=== PATIENT | male | born 1965 | race Caucasian/White ===

== ENCOUNTER 2022-10-17 11:15 | Inpatient (IN) | payer BC, OTHER ==
[~2022-10-17] VITALS: Ht 175.3 cm; Wt 135.6 kg
--- NOTE | 2022-10-17 11:15 | NUR ---
Placed in room 8 . Placed on ekg monitor tech, blood pressure machine and pulse oximeter. To gown for exam. Side rails up. Report given to ADILIA Panda.
[2022-10-17 11:24] VITALS: BP_SYST 136
--- NOTE | 2022-10-17 11:25 | NUR ---
PT BIB DAUGHTER AWAKE AND ALERT AOX4, NO SOB OR DISTRESS. PT C/O SOB FOR 4 DAYS. PT STATED HE RECENTLY HAD A LAP BAND REVERSAL SX LAST WEEK. PT HAS HX OF HTN, ASTHMA, LAP BAND . PT DENIES N/V/D.
--- NOTE | 2022-10-17 11:27 | NUR ---
MD DR PENG AT BEDSIDE
[2022-10-17] MEDS ORDERED: ALBUTEROL SULFATE 0.083% 2.5 MG/3 ML VIAL.NEB INH ONE ×2 (11:39→11:45)
[2022-10-17] MEDS ORDERED: IPRATROPIUM BROM 0.5 MG/2.5 ML VIAL.NEB (ATROVENT) INH ONE ×2 (11:39→11:45)
[2022-10-17 12:17] LABS: BASOPHILS # (AUTO) 0.1 K/uL (0.0-0.2); BASOPHILS % (AUTO) 0.7 % (0.0-2.0); EOSINOPHILS # (AUTO) 0.2 K/uL (0.0-0.4); EOSINOPHILS % (AUTO) 1.7 % (0.0-4.0); HEMATOCRIT 41.6 % (36-54); HEMOGLOBIN 13.7 g/dL (14.0-18.0); LYMPHOCYTES # (AUTO) 0.6 K/uL (1.0-5.5); LYMPHOCYTES % (AUTO) 5.8 % (20.5-51.5); MEAN CORPUSCULAR HEMOGLOBIN 27 pg (27-31); MEAN CORPUSCULAR HGB CONC 33 % (32-36); MEAN CORPUSCULAR VOLUME 80 fL (79.0-98.0); MONOCYTES # (AUTO) 0.7 K/uL (0.0-1.0); MONOCYTES % (AUTO) 6.2 % (1.7-9.3); NEUTROPHILS # (AUTO) 9.5 K/uL (1.8-7.7); NEUTROPHILS % (AUTO) 85.6 % (40.0-70.0); PLATELET COUNT (AUTO) 372 K/uL (130-430); RED BLOOD CELL COUNT(AUTO) 5.19 MIL/uL (4.2-6.2); WHITE BLOOD COUNT (AUTO) 11.1 K/uL (4.8-10.8)
[2022-10-17 12:34] LABS: ANION GAP 7 (5-15); CALCIUM 8.3 mg/dL (8.4-11.0); CHLORIDE 100 mmol/L (98-107); CREATININE 1.01 mg/dL (0.55-1.30); GFR AFRICAN AMERICAN 98 mL/min (>90); GLUCOSE 216 mg/dL (70-99); UREA NITROGEN, BLOOD 24 mg/dL (8-21)
[2022-10-17 12:41] LABS: ALANINE AMINOTRANSFERASE 60 U/L (12-78); ALBUMIN 2.3 g/dL (3.4-4.8); ASPARTATE AMINOTRANSFERASE 41 U/L (10-37); TOTAL BILIRUBIN 0.8 mg/dL (0.0-1.0)
[2022-10-17] MEDS ORDERED: NEU300 PO (13:53)
[2022-10-17] MEDS ORDERED: LISI40TA13 PO (13:53)
--- NOTE | 2022-10-17 15:13 | NUR ---
Admit bed requested Patient will be admitted to care of Dr. DR GONZALEZ. Admitted to MED SURGE unit. Diagnosis ACUTE ASTHMA Inpatient (Yes or No) YES Observation (Yes or No) NO Orientation concerns or request close to nursing station (Yes or No) NO Covid Status NEG On vent or bipap NO Isolation requirements NO Needs a sitter NO From Home (Yes or if No enter name of facility) HOME Requires Dialysis (Yes or No) NO Med Rec Completed (Yes of No) YES
--- NOTE | 2022-10-17 16:00 | NUR ---
Patient will be admitted to [facility]. Admitted to MED SURGE unit. Will go to room 106B. Belongings list completed. Complete and up to date summary report printed. SBAR report to be given at bedside with opportunity for questions.
--- NOTE | 2022-10-17 16:20 | NUR ---
PT CAME FROM ER VIA GURNEY WITH O2 2L VIA NC. PT WAS SITTING ON CHAIR UPON ARRIVAL. VS 116/71, 112, 80.4, 94-95%. NO C/O PAIN OR DISCOMFORT. DTR AT BEDSIDE. COMPLETED ADMISSION AND BELONGINGS. ENCOURAGED PT TO USE CALL LIGHT FOR ASSISTANCE. PT VERBALIZED UNDERSTANDING. BED IS LOCKED AND AT LOW POSITION. WILL CONT TO MONITOR
--- NOTE | 2022-10-17 16:26 | NUR ---
CONSULTATION PAGED REASON FOR CONSULTATION: ACUTE ASTHMA WAS CONSULT CALLED? Y PERSON WHO WAS NOTIFIED: [facility] CONSULTING PHYSICIAN: VERONICA KOO FIELD TEST ENGINEER SPECIALTY: ID FIELD TEST ENGINEER PHONE NUMBER: [phone] REQUESTING PHYSICIAN: YONY GABRIEL
[2022-10-17 16:27] VITALS: BP_SYST 116
--- NOTE | 2022-10-17 16:31 | NUR ---
CONSULTATION PAGED REASON FOR CONSULTATION: ACUTE ASTHMA WAS CONSULT CALLED? Y PERSON WHO WAS NOTIFIED: [facility] CONSULTING PHYSICIAN: YOVANNY MCNALLY WASHING MACHINE INSTALLER SPECIALTY: PULMONARY WASHING MACHINE INSTALLER PHONE NUMBER: [phone] REQUESTING PHYSICIAN: YONY GABRIEL
--- NOTE | 2022-10-17 16:59 | NUR ---
DR. STUART AT BEDSIDE, ASSESSING PT
[2022-10-17 17:04] VITALS: BP_SYST 116
[2022-10-17] MEDS: POTASSIUM CHLORIDE 20 MEQ TAB.PRT.SR PO SCH ×2 (17:24→19:16)
--- NOTE | 2022-10-17 17:50 | NUR ---
DR. WONG CALLED, NEW ORDER RECEIVED.
[2022-10-17] MEDS: IPRATROPIUM/ALBUTEROL SULFATE 3 ML AMPUL.NEB (DUONEB) INH SCH ×2 (18:00→23:28)
[2022-10-17] MEDS ORDERED: CEFTRIAXONE SOD 1 GM/ D5W 50 ML IV SCH ×2 (18:00)
[2022-10-17 19:00] VITALS: BP_SYST 123
[2022-10-17] MEDS ORDERED: IPRATROPIUM/ALBUTEROL SULFATE 3 ML AMPUL.NEB (DUONEB) INH SCH (19:00)
--- NOTE | 2022-10-17 19:15 | NUR ---
CLOSING NOTE; PT RESTING IN BED WITH FAMILY MEMBERS. BREATHING 2L O2 VIA NC. IV S/L REMAIN INTACT AND PATENT. DENIES ANY PAIN DISCOMFORT AT THIS TIME. GAVE UPDATES TO FAMILY. BED IS LOCKED AND AT LOW POSITION. SAFETY PRECAUTION IN PLACE. ENCOURAGED PT TO USE CALL LIGHT FOR ASSISTANCE. ENDORSED CARE TO IN TUBE CONVERSION TECHNICIAN NURSE.
--- NOTE | 2022-10-17 19:15 | NUR ---
change of shift.pt.presents admit dx;asthma.pt.presents respiratory status labored.o2 therapy administered via nasal cannulae. 02-sat%=96%.pt.presents respiratory status character labored.pt.presents iv access location lt.antecubital intact;patent.pt. capable to ambulate un-assisted.call light/telephone w/in access of the pt.
[2022-10-17 20:00] VITALS: BP_SYST 123
--- NOTE | 2022-10-17 20:00 | NUR ---
pt.assessed.v/s assessed values note 02-sat%=94%.o2 therapy administered rate:2l/min.breathing pattern/character labored.note temp.no c/o pain,nausea.note s.tachycardia status.temp noted.to review emar med-list r/e;pt.v/s values. call light/telephone w/in access of the pt.
[2022-10-17] MEDS ORDERED: ACETAMINOPHEN 325 MG TABLET PO PRN ×2 (20:15→21:00)
[2022-10-17] MEDS ORDERED: ACETAMINOPHEN 650 MG SUPP.RECT RC PRN (20:15)
--- NOTE | 2022-10-17 21:00 | NUR ---
2100p medications administered.pt.capable to ingest the po medications w/out difficulty.pt.c/o pain anjali paged. apprised pt's requests. ordered ultram:50mg q-6hrs/p.02-sat%=96%.call light/telephone w/in access of the pt.
--- NOTE | 2022-10-17 21:30 | NUR ---
tylenol;650mg;temp/ultram:50mg:pain administered.to assess the efficacy of the pain/temp medication per medication protocol.
[2022-10-17] MEDS: METHYLPREDNISOLONE SOD SUCC 40 MG/ML VIAL IVP SCH (21:39)
[2022-10-17] MEDS: traMADol HCL HCL 50 MG TABLET (ULTRAM) PO PRN (21:43)
[2022-10-17] MEDS ORDERED: methylPREDNISolone SOD SUCC/PF 62.5 MG/ML VIAL IVP SCH (22:00)
--- NOTE | 2022-10-17 22:00 | NUR ---
pt.assessed.applied o2 therapy via mask.breathing character/pattern stable.02-sat%=98%.pt.presents calm affect. respiratory status decreased labored status.no c/o pain,nausea.no requests posited@this hour.pt.capable to reposition self.call light/telephone w/in access of the pt.
--- NOTE | 2022-10-17 23:00 | NUR ---
pt.requested medication;sleep.restoril:15mg administered.to assess the efficacy of the medication per medication policy.
[2022-10-17] MEDS: TEMAZEPAM 7.5 MG CAPSULE PO PRN (23:05)
--- NOTE | 2022-10-18 | NUR ---
pt.assessed.v/s assessed values wnl.o2-sat%=94%.no c/o pain,nausea.no requests posited@this hour.iv access intact;patent.pt.capable to reposition self.call light/telephone w/in access of the pt.
--- NOTE | 2022-10-18 02:00 | NUR ---
pt.assessed.pt.quiescent.02-thu%=96%.breathing pattern/character stable;quiescent.per flacc pain mgx pt.absent facial grimaces/body posturing.call light/telephone w/n access of the pt.
[2022-10-18 02:39] VITALS: BP_SYST 114
[2022-10-18] MEDS: IPRATROPIUM/ALBUTEROL SULFATE 3 ML AMPUL.NEB (DUONEB) INH PRN ×2 (03:22→17:57)
--- NOTE | 2022-10-18 04:00 | NUR ---
pt.assessed.pt.quiescent.per flacc pain mgx pt.absent facial grimaces/body posturing.o2-sat%=96%.pt.capable to reposition self.call light/telephone w/in access of the pt.
[2022-10-18] MEDS: METHYLPREDNISOLONE SOD SUCC 40 MG/ML VIAL IVP SCH ×3 (05:24→21:42)
--- NOTE | 2022-10-18 06:00 | NUR ---
pt.assessed.pt.quiescent.no c/o pain,nausea.no requests posited@this hour.solumedrol;ivp 0600a dose administered.pt.capable to reposition self.02-sat%=96%.call light/telephone placed w/in access of the pt.
[2022-10-18 07:07] LABS: BASOPHILS % (AUTO) 0.3 % (0.0-2.0); EOSINOPHILS % (AUTO) 0.1 % (0.0-4.0); HEMATOCRIT 40.2 % (36-54); HEMOGLOBIN 13.3 g/dL (14.0-18.0); LYMPHOCYTES # (AUTO) 0.9 K/uL (1.0-5.5); MEAN CORPUSCULAR HEMOGLOBIN 26 pg (27-31); MEAN CORPUSCULAR HGB CONC 33 % (32-36); MEAN CORPUSCULAR VOLUME 80 fL (79.0-98.0); MONOCYTES # (AUTO) 0.2 K/uL (0.0-1.0); NEUTROPHILS # (AUTO) 11.5 K/uL (1.8-7.7); NEUTROPHILS % (AUTO) 90.6 % (40.0-70.0); PLATELET COUNT (AUTO) 375 K/uL (130-430); RED BLOOD CELL COUNT(AUTO) 5.03 MIL/uL (4.2-6.2); RED CELL DISTRIBUTION WIDTH 16.5 % (9.0-15.0); WHITE BLOOD COUNT (AUTO) 12.6 K/uL (4.8-10.8)
--- NOTE | 2022-10-18 07:20 | NUR ---
Initial notes Received patient awake sitting up at edge of bed AAOx4, respiration even and unlabored oxygen saturation at 96% nasal cannula, no c/o pain/SOB, no signs of distress noted. IV to right hand patent, all safety secured, bed in low position and call light w/in reached.
--- NOTE | 2022-10-18 07:21 | NUR ---
IV to right forearm patent
[2022-10-18 07:22] LABS: CALCIUM 8.1 mg/dL (8.4-11.0); CREATININE 0.8 mg/dL (0.55-1.30)
[2022-10-18] MEDS: IPRATROPIUM/ALBUTEROL SULFATE 3 ML AMPUL.NEB (DUONEB) INH SCH ×4 (07:27→23:13)
[2022-10-18 08:09] VITALS: BP_SYST 121
[2022-10-18] MEDS: FAMOTIDINE PF 20 MG/2 ML VIAL IVP SCH (08:31)
[2022-10-18] MEDS ORDERED: cefTRIAXone 1 GM VIAL IM ONE (09:00)
[2022-10-18 11:31] VITALS: BP_SYST 127
[2022-10-18 15:25] VITALS: BP_SYST 115
--- NOTE | 2022-10-18 19:29 | NUR ---
Patient stable , no change in condition, no c/o SOB/pain, will endorse to oncoming nurse
[2022-10-18 20:30] VITALS: BP_SYST 134
--- NOTE | 2022-10-18 21:00 | NUR ---
phoned & spoke with DR LISA ALTMAN Regarding patient c/o ACID STOMACH / HEART BURN .
--- NOTE | 2022-10-18 21:10 | NUR ---
New orders obtained DR LISA ALTMAN START PROTONIX 40 MG po now / .
[2022-10-18] MEDS: GABAPENTIN 300 MG CAPSULE PO SCH (21:39)
[2022-10-18] MEDS: TEMAZEPAM 7.5 MG CAPSULE PO PRN (21:41)
[2022-10-18] MEDS: traMADol HCL HCL 50 MG TABLET (ULTRAM) PO PRN (21:42)
[2022-10-18] MEDS: PANTOPRAZOLE SODIUM 40 MG TAB PO SCH (21:57)
[2022-10-18] MEDS ORDERED: PANTOPRAZOLE SODIUM 40 MG TAB PO ONE (21:58)
--- NOTE | 2022-10-18 22:24 | NUR ---
ULTRAM 50 MG po administer for general pain encourage position change also helpful / .
[2022-10-19 00:18] VITALS: BP_SYST 135
[2022-10-19] MEDS: IPRATROPIUM/ALBUTEROL SULFATE 3 ML AMPUL.NEB (DUONEB) INH PRN (03:45)
--- NOTE | 2022-10-19 04:31 | NUR ---
Patient Resting on C PAP MACHINE Respirations Remain Regular also unlabored call park with patient / .
[2022-10-19] MEDS: METHYLPREDNISOLONE SOD SUCC 40 MG/ML VIAL IVP SCH ×3 (06:02→21:55)
[2022-10-19 07:01] LABS: BASOPHILS # (AUTO) 0.1 K/uL (0.0-0.2); BASOPHILS % (AUTO) 0.6 % (0.0-2.0); HEMATOCRIT 38.5 % (36-54); HEMOGLOBIN 12.4 g/dL (14.0-18.0); LYMPHOCYTES # (AUTO) 0.6 K/uL (1.0-5.5); LYMPHOCYTES % (AUTO) 3.5 % (20.5-51.5); MEAN CORPUSCULAR HEMOGLOBIN 26 pg (27-31); MEAN CORPUSCULAR HGB CONC 32 % (32-36); MEAN CORPUSCULAR VOLUME 81 fL (79.0-98.0); MONOCYTES # (AUTO) 0.6 K/uL (0.0-1.0); MONOCYTES % (AUTO) 3.5 % (1.7-9.3); NEUTROPHILS # (AUTO) 15.5 K/uL (1.8-7.7); NEUTROPHILS % (AUTO) 92.4 % (40.0-70.0); PLATELET COUNT (AUTO) 371 K/uL (130-430); RED BLOOD CELL COUNT(AUTO) 4.76 MIL/uL (4.2-6.2); WHITE BLOOD COUNT (AUTO) 16.7 K/uL (4.8-10.8)
[2022-10-19 07:22] LABS: CALCIUM 8.5 mg/dL (8.4-11.0); CREATININE 0.89 mg/dL (0.55-1.30)
[2022-10-19] MEDS: IPRATROPIUM/ALBUTEROL SULFATE 3 ML AMPUL.NEB (DUONEB) INH SCH ×5 (07:32→23:06)
[2022-10-19] MEDS: GABAPENTIN 300 MG CAPSULE PO SCH ×2 (08:17→21:55)
[2022-10-19] MEDS: lisinopriL 20 MG TABLET PO SCH (08:18)
[2022-10-19] MEDS: FAMOTIDINE PF 20 MG/2 ML VIAL IVP SCH (08:19)
[2022-10-19] MEDS: PANTOPRAZOLE SODIUM 40 MG TAB PO SCH (08:19)
[2022-10-19 08:24] VITALS: BP_SYST 139
[2022-10-19 11:22] VITALS: BP_SYST 142
--- NOTE | 2022-10-19 13:17 | NUR ---
Dietitian Recommendations * [facility] * Ordered Glucerna BID (vanilla flavor) * Consider obtaining Hgba1c value * Suggest daily multivitamin with minerals for micronutrient coverage GS, MPH, RD Please refer to RD Assessment for further details. Thanks! Addendum: 10/19/22 at [address] Amended: Links added.
[2022-10-19 15:10] VITALS: BP_SYST 126
--- NOTE | 2022-10-19 19:00 | NUR ---
Patient sitting next to bed with family at bedside, no c/o SOB/pain , no signs of distress all safety secured, bed in low position and call light w/in reached, will endorse
[2022-10-19 20:00] VITALS: BP_SYST 138
[2022-10-19] MEDS: traMADol HCL HCL 50 MG TABLET (ULTRAM) PO PRN (21:55)
[2022-10-19] MEDS: TEMAZEPAM 7.5 MG CAPSULE PO PRN (21:56)
[2022-10-19] MEDS: INSULIN REGULAR, HUMAN 100 UNITS/ML, 3 ML VIAL (humuLIN R) SUBCUT PRN (22:01)
--- NOTE | 2022-10-19 22:03 | NUR ---
phoned paged DR JUDITH ALTMAN elevated BS @ 204 , patient did , says just ate large meal FOOD FROM HOME / patient is non compliant with ordered po diet / .
--- NOTE | 2022-10-19 22:06 | NUR ---
New ORDERS DR JUDITH ALTMAN SLIDING SCALE insulin 12 units as ordered patient alert & ambulatory / .
[2022-10-20] VITALS: BP_SYST 106
--- NOTE | 2022-10-20 00:12 | NUR ---
PHONED paged DR JUDITH ALTMAN RE CHECK OF bsg @ 108 , PATIENT ALERT ORIENTED & ambulates to rest room with steady gait .
--- NOTE | 2022-10-20 00:38 | NUR ---
NEW ORDERS DR WONG administer additional 12 units of Regular insulin then re check BS in two hours .
[2022-10-20] MEDS: INSULIN REGULAR, HUMAN 100 UNITS/ML, 3 ML VIAL (humuLIN R) SUBCUT PRN ×5 (00:53→20:59)
[2022-10-20] MEDS: IPRATROPIUM/ALBUTEROL SULFATE 3 ML AMPUL.NEB (DUONEB) INH SCH ×6 (03:15→23:00)
--- NOTE | 2022-10-20 05:13 | NUR ---
Patient alert awake taken off C PAP assist out of bed to rest room steady gait no SOB activity tolerated FALL MEASURES IMPLEMENTED .
[2022-10-20 05:19] LABS: BASOPHILS % (AUTO) 0.2 % (0.0-2.0); EOSINOPHILS % (AUTO) 0.1 % (0.0-4.0); HEMATOCRIT 37.3 % (36-54); HEMOGLOBIN 12.2 g/dL (14.0-18.0); LYMPHOCYTES # (AUTO) 0.6 K/uL (1.0-5.5); LYMPHOCYTES % (AUTO) 4.3 % (20.5-51.5); MEAN CORPUSCULAR HEMOGLOBIN 26 pg (27-31); MEAN CORPUSCULAR HGB CONC 33 % (32-36); MEAN CORPUSCULAR VOLUME 80 fL (79.0-98.0); MONOCYTES # (AUTO) 0.4 K/uL (0.0-1.0); MONOCYTES % (AUTO) 2.6 % (1.7-9.3); NEUTROPHILS # (AUTO) 13.3 K/uL (1.8-7.7); NEUTROPHILS % (AUTO) 92.8 % (40.0-70.0); PLATELET COUNT (AUTO) 385 K/uL (130-430); RED BLOOD CELL COUNT(AUTO) 4.64 MIL/uL (4.2-6.2); RED CELL DISTRIBUTION WIDTH 16.6 % (9.0-15.0); WHITE BLOOD COUNT (AUTO) 14.3 K/uL (4.8-10.8)
[2022-10-20 07:25] LABS: CALCIUM 8.1 mg/dL (8.4-11.0); CREATININE 0.93 mg/dL (0.55-1.30)
[2022-10-20] MEDS: PANTOPRAZOLE SODIUM 40 MG TAB PO SCH (08:15)
[2022-10-20] MEDS: GABAPENTIN 300 MG CAPSULE PO SCH ×2 (08:15→20:44)
[2022-10-20] MEDS: FAMOTIDINE PF 20 MG/2 ML VIAL IVP SCH (08:16)
[2022-10-20] MEDS: lisinopriL 20 MG TABLET PO SCH (08:16)
[2022-10-20] MEDS: METHYLPREDNISOLONE SOD SUCC 40 MG/ML VIAL IVP SCH ×2 (08:16→20:45)
--- NOTE | 2022-10-20 10:26 | NUR ---
SPOKE TO THE PATIENT TO SEE IF HE HAD A NUBULIZER AT HOME HE STATED NO. SENT FAX TO [facility] TO SET UP. WAITING TO HEAR BACK
--- NOTE | 2022-10-20 10:39 | NUR ---
patient c/o feeling "shaky" upon assesment patients has slight trembling in left hand, vs 126/76 pr 69 rr 20 sao2 97% on RA temp 97.9, blood sugar 169, no other c/o distress at this time
--- NOTE | 2022-10-20 11:45 | NUR ---
Assisted Living Assistant re: suicidal ideation In to see patient this afternoon, regarding his recent consult. The patient is alert and oriented and was in agreement to speaking to me. Per patient, he resides in a two-story home with his children. He was using no assistive devices prior to his admission. He was independent with all of his care needs, able to drive, and still working [employer] department supervisor. He does not have a Power of Prosthetics Lab Technician, but states his biggest form of support comes from his three adult children. His PCP is Dr. Walker in [place]. Per patient, he plans to change his PCP in the near future. The discharge plan is to return home with his children. At time of discharge, the daughter advised that she will transport him home. We discussed his need for a cPap/BiPap machine along with a nebulizer. I advised the patient that the case management team will assist with the necessary ordering of DME needed for his discharge. Patient informed that the [facility] will arrange for necessary DME that is ordered by the dr. Prior to leaving the room, I inquired with the patient about his mental health needs. Per patient, he does not participate in mental health services. I inquired about ever being diagnosed with depression, anxiety, or even mood disorders. The patient states he does not have mental health diagnosis and he has never been diagnosed with a mental health diagnoses. Per patient, he does not have thoughts of self harm, suicide, or having harmful acts to others. The patient states he is happy and is easy going. He references his relationship to God as being the reason why he "doesn't think like that". After meeting with the patient, I reviewed the consult with ADILIA Zhang. I inquired about his mental health and informed her of my conversation with the patient. She indicated she has not experienced any concerns related to the patient's mental health and that there have been no issues observed related to his mental health. There have been no indications that the patient is suicidal, and that it is quite possibly an incorrect consult that has now triggered additional warnings including the way his meals come out. At this time, the patient is not on suicidal precaution. He has familial support at bedside and is hoping to be able to return home soon. I advised the nurse that should there be anything else needed of me to please advise.
[2022-10-20 12:00] VITALS: BP_SYST 121
--- NOTE | 2022-10-20 13:00 | NUR ---
orders obtained from for upper gi series to be done stat with results called to him @ [phone],
[2022-10-20] MEDS ORDERED: PROMETHAZINE-DM 6.25 MG-15 MG/5 ML UDC PO PRN (13:15)
[2022-10-20] MEDS ORDERED: DOCUSATE SODIUM 100 MG CAPSULE PO ONE (16:00)
--- NOTE | 2022-10-20 16:00 | NUR ---
telephone call to Dr. cruz to notify him that radiologist will not be available until thursday at 1330, stated that once exam is done he would like a call with results immediately and if wnl patient can dc home
--- NOTE | 2022-10-20 17:30 | NUR ---
patient had small bm and c/o of constipation, order obtained for colace
[2022-10-20 18:11] VITALS: BP_SYST 121
--- NOTE | 2022-10-20 18:42 | NUR ---
patient c/o productive cough, prn phenergan administered per emar
--- NOTE | 2022-10-20 19:25 | NUR ---
INITIAL NOTES; endorsed by day shift with DX Acute Asthma. pt. sitting up in chair. RT giving him a breathing treatment, noted wheezing. will check medication.call light at bedside.
[2022-10-20 20:20] VITALS: BP_SYST 132
[2022-10-20] MEDS: DOCUSATE SODIUM 100 MG CAPSULE PO SCH (20:44)
--- NOTE | 2022-10-20 20:45 | NUR ---
NOTES: due medications given. BS checked 353 with sliding scale coverage. remain sitting up in chair.
--- NOTE | 2022-10-20 23:30 | NUR ---
NOTES: pt. placed on CPAP by RT. occ.bouts of productive cough.
--- NOTE | 2022-10-21 02:00 | NUR ---
NOTES: condition observed.
[2022-10-21 02:20] VITALS: BP_SYST 138
[2022-10-21] MEDS: IPRATROPIUM/ALBUTEROL SULFATE 3 ML AMPUL.NEB (DUONEB) INH SCH ×5 (02:53→17:14)
[2022-10-21] MEDS: INSULIN REGULAR, HUMAN 100 UNITS/ML, 3 ML VIAL (humuLIN R) SUBCUT PRN (06:25)
--- NOTE | 2022-10-21 06:47 | NUR ---
CLOSING NOTES; pt. checked , still asleep on CPAP. awakened for BS checked 160. no distress. IV site intact. for further assistance. will endorse to incoming shift. schedule for UGI series this am. will keep NPO for now, called radiology.
[2022-10-21 09:46] VITALS: BP_SYST 130
[2022-10-21] MEDS: METHYLPREDNISOLONE SOD SUCC 40 MG/ML VIAL IVP SCH (10:50)
[2022-10-21] MEDS: FAMOTIDINE PF 20 MG/2 ML VIAL IVP SCH (10:50)
[2022-10-21 11:33] VITALS: BP_SYST 135
--- NOTE | 2022-10-21 13:00 | NUR ---
PATIENT IS RESTING, BREATHING UNLABORED ON RA, NO DISTRESS, NO SOB, NO PAIN. CALL LIGHT WITHIN REACH. BED IS LOCKED IN LOWEST POSITION. ALL NEED MET. WILL CONTINUE WITH PLAN OF CARE.
[2022-10-21] MEDS ORDERED: BARIUM SULFATE 135 ML SUSP.RECON (E-Z-HD) PO ONE (14:07)
--- NOTE | 2022-10-21 14:16 | NUR ---
MR CASTELLANOS HAS BEEN APPROVED FOR THE NEBULIZER WAITING TO HERE FROM [facility] OR [facility] TO SEE IF THERE IS A PROBLEM GETTING THE CPAP MACHINE. SAYING THEY ARE KNOWN FOR ASKING A SLEEP STUDY.
--- NOTE | 2022-10-21 14:50 | NUR ---
PATIENT LEFT TO RADIOLOGY FOR KUB.
[2022-10-21 15:26] VITALS: BP_SYST 116
--- NOTE | 2022-10-21 15:30 | NUR ---
Patient returned from Radiology.
[2022-10-21] MEDS: DOCUSATE SODIUM 100 MG CAPSULE PO SCH (15:37)
[2022-10-21] MEDS: PANTOPRAZOLE SODIUM 40 MG TAB PO SCH (15:38)
[2022-10-21] MEDS: GABAPENTIN 300 MG CAPSULE PO SCH (15:38)
[2022-10-21] MEDS: lisinopriL 20 MG TABLET PO SCH (15:38)
--- NOTE | 2022-10-21 16:00 | NUR ---
JOSE RIVERA WILL BE DISCHARGED THIS EVENING SPOKE TO HIM AND HIS DAUGHTER GAVE THEM THE NUMBER TO HIS CASE MAMADOU BORREGO WHO IS FOLLOWING ON THE SLEEP STUDY THAT WAS DONE IN AUGUST 2022. SO HE CAN RECEIVE HIS CPAP MACHINE
--- NOTE | 2022-10-21 16:01 | NUR ---
Md Lin called stating that patient can go home today. He wants results of upper Gi faxed to his office:
[2022-10-21 16:07] VITALS: BP_SYST 116
[2022-10-21] MEDS ORDERED: PRED5TAB PO (16:17)
[2022-10-21] MEDS ORDERED: ALBU2.5V7 INH (16:18)
[2022-10-21] MEDS ORDERED: IPRA3AMP9 INH ×2 (16:19→16:23)
--- NOTE | 2022-10-21 17:08 | NUR ---
D/C Patient Patient given medication reconciliation form and D/C instructions. Exit Care provided. Patient verbalized understanding. MD Aceves's HEAD OF HOUSEKEEPING Mitzi discussed with patient the results and treatment provided. Ambulatory with steady gait for discharge to home. Patient in stable condition, ID band removed. IV catheter removed, intact and dressing applied, no active bleeding. Rx of Prednisone given as well as med rec. Patient educated on respiratory management. All belongings sent with patient.
== END 2022-10-21 17:00 | disposition home or self-care (01) | DRG 190 ==
LOC: SED 11:15 → SMU 15:03
PROVIDERS: ADMIT Internal Medicine; ATTEND Internal Medicine
PROC: 5A09357 Assistance with Respiratory Ventilation, Less than 24 Consecutive Hours, Continuous Positive Airway Pressure (ICD-10-PCS; principal; 2022-10-20)
DX: J44.1 Chronic obstructive pulmonary disease with (acute) exacerbation (principal); N17.0 Acute kidney failure with tubular necrosis; J45.901 Unspecified asthma with (acute) exacerbation; Z68.41 Body mass index [BMI] 40.0-44.9, adult; G47.33 Obstructive sleep apnea (adult) (pediatric); E66.9 Obesity, unspecified; Z20.822 Contact with and (suspected) exposure to COVID-19; E11.9 Type 2 diabetes mellitus without complications; F17.200 Nicotine dependence, unspecified, uncomplicated; I10 Essential (primary) hypertension; R09.02 Hypoxemia; R06.89 Other abnormalities of breathing; Z79.899 Other long term (current) drug therapy; Z80.1 Family history of malignant neoplasm of trachea, bronchus and lung
CPT/HCPCS: 36415; 36600; 71045; 74150-TC; 76376; 80048; 80053; 82803; 83037; 83605; 83880; 84484; 85025; 93005; 93306; 94640; 94660; 94760; 99285; J0696; J1030; J1956; J3490; J7060; J7613

== ENCOUNTER 2022-11-04 20:54 | Observation (INO) | payer BC, OTHER ==
[~2022-11-04] VITALS: Ht 175.3 cm; Wt 139.7 kg
[~2022-11-04 20:54] MED LIST: IPRA3AMP9 INH; LISI40TA13 PO; NEU300 PO; PRED5TAB PO
[2022-11-04 20:57] VITALS: BP_SYST 132
[2022-11-04] MEDS ORDERED: IPRATROPIUM BROM 0.5 MG/2.5 ML VIAL.NEB (ATROVENT) INH ONE (21:45)
[2022-11-04] MEDS ORDERED: methylPREDNISolone SOD SUCC/PF 62.5 MG/ML VIAL IVP ONE (21:45)
[2022-11-04] MEDS ORDERED: ALBUTEROL SULFATE 0.083% 2.5 MG/3 ML VIAL.NEB INH ONE (21:45)
[2022-11-04 23:54] LABS: BASOPHILS % (AUTO) 0.5 % (0.0-2.0); EOSINOPHILS # (AUTO) 0.1 K/uL (0.0-0.4); HEMATOCRIT 40.4 % (36-54); HEMOGLOBIN 13.3 g/dL (14.0-18.0); LYMPHOCYTES # (AUTO) 0.7 K/uL (1.0-5.5); LYMPHOCYTES % (AUTO) 8.6 % (20.5-51.5); MEAN CORPUSCULAR HEMOGLOBIN 26 pg (27-31); MEAN CORPUSCULAR HGB CONC 33 % (32-36); MEAN CORPUSCULAR VOLUME 79 fL (79.0-98.0); MONOCYTES # (AUTO) 0.4 K/uL (0.0-1.0); MONOCYTES % (AUTO) 4.8 % (1.7-9.3); NEUTROPHILS # (AUTO) 6.5 K/uL (1.8-7.7); NEUTROPHILS % (AUTO) 85.1 % (40.0-70.0); PLATELET COUNT (AUTO) 163 K/uL (130-430); RED BLOOD CELL COUNT(AUTO) 5.11 MIL/uL (4.2-6.2); RED CELL DISTRIBUTION WIDTH 16.8 % (9.0-15.0); WHITE BLOOD COUNT (AUTO) 7.6 K/uL (4.8-10.8)
[2022-11-05] VITALS (11 sets, daily range): BP systolic 93–119
[2022-11-05 00:03] LABS: BILIRUBIN,URINE 1+ (NEGATIVE); BLOOD, URINE 3+ (NEGATIVE); CLARITY/URINE SL CLOUDY (CLEAR); COLOR,URINE YELLOW (YELLOW); GLUCOSE,URINE NEGATIVE (NEGATIVE); KETONES,URINE NEGATIVE (NEGATIVE); LEUKOCYTE ESTERASE ,URINE NEGATIVE (NEGATIVE); NITRITE, URINE NEGATIVE (NEGATIVE); PH,URINE 5.5 (5.0-8.0); PROTEIN URINE 1+ (NEGATIVE); UROBILINOGEN,URINE 0.2 (0.2-1.0)
[2022-11-05 00:27] LABS: RBC,URINE >100 /HPF (0-3)
[2022-11-05 00:28] LABS: BACTERIA,URINE FEW /HPF (None Seen)
[2022-11-05] MEDS ORDERED: iohexoL 350 mgI/mL, 100 ML INFUS..BTL IV ONE (00:39)
[2022-11-05 00:44] LABS: ANION GAP 10 (5-15); CALCIUM 8.4 mg/dL (8.4-11.0); CHLORIDE 102 mmol/L (98-107); CREATININE 1.46 mg/dL (0.55-1.30); GFR AFRICAN AMERICAN 64 mL/min (>90); GLUCOSE 140 mg/dL (70-99); UREA NITROGEN, BLOOD 33 mg/dL (8-21)
[2022-11-05 00:50] LABS: ALANINE AMINOTRANSFERASE 20 U/L (12-78); ALBUMIN 2.8 g/dL (3.4-4.8); ASPARTATE AMINOTRANSFERASE 23 U/L (10-37); TOTAL BILIRUBIN 0.8 mg/dL (0.0-1.0)
[2022-11-05] MEDS ORDERED: TAMS-11 PO (03:35)
[2022-11-05] MEDS ORDERED: NALOXONE HCL 0.4 MG/ML AMP (NARCAN) IVP PRN ×2 (07:00)
[2022-11-05] MEDS ORDERED: ACETAMINOPHEN 325 MG TABLET PO PRN ×2 (07:00→07:30)
[2022-11-05] MEDS ORDERED: HYDROcodone/ACETAMIN 10-325 MG TAB PO PRN (07:00)
[2022-11-05] MEDS ORDERED: ONDANSETRON HCL 4 MG/2 ML VIAL IVP PRN (07:00)
[2022-11-05] MEDS ORDERED: HYDROcodone/ACETAMIN 5-325 MG TAB (NORCO/ VICODIN) PO PRN (07:00)
[2022-11-05] MEDS: IPRATROPIUM BROM 0.5 MG/2.5 ML VIAL.NEB (ATROVENT) INH SCH ×4 (07:53→23:00)
[2022-11-05] MEDS: ALBUTEROL SULFATE 0.083% 2.5 MG/3 ML VIAL.NEB INH SCH ×4 (07:53→23:00)
[2022-11-05 08:08] LABS: BASOPHILS % (AUTO) 0.2 % (0.0-2.0); HEMATOCRIT 39.9 % (36-54); HEMOGLOBIN 13.2 g/dL (14.0-18.0); LYMPHOCYTES # (AUTO) 0.4 K/uL (1.0-5.5); LYMPHOCYTES % (AUTO) 9.5 % (20.5-51.5); MEAN CORPUSCULAR HEMOGLOBIN 26 pg (27-31); MEAN CORPUSCULAR HGB CONC 33 % (32-36); MEAN CORPUSCULAR VOLUME 79 fL (79.0-98.0); NEUTROPHILS # (AUTO) 3.5 K/uL (1.8-7.7); NEUTROPHILS % (AUTO) 89.3 % (40.0-70.0); PLATELET COUNT (AUTO) 195 K/uL (130-430); RED BLOOD CELL COUNT(AUTO) 5.08 MIL/uL (4.2-6.2); RED CELL DISTRIBUTION WIDTH 16.9 % (9.0-15.0); WHITE BLOOD COUNT (AUTO) 3.9 K/uL (4.8-10.8)
[2022-11-05 08:32] LABS: ALBUMIN 2.8 g/dL (3.4-4.8); CALCIUM 8.5 mg/dL (8.4-11.0); CREATININE 1.11 mg/dL (0.55-1.30); PHOSPHORUS 4.1 mg/dL (2.7-4.5); TOTAL BILIRUBIN 0.6 mg/dL (0.0-1.0)
[2022-11-05] MEDS: GABAPENTIN 300 MG CAPSULE PO SCH ×2 (09:20→21:00)
[2022-11-05] MEDS: lisinopriL 20 MG TABLET PO SCH (09:20)
[2022-11-05] MEDS: TAMSULOSIN HCL 0.4 MG CAP PO SCH (09:20)
[2022-11-05] MEDS: SPIRONOLACTONE 50 MG TABLET (ALDACTONE) PO SCH (09:21)
[2022-11-05] MEDS: FUROSEMIDE 20 MG/2 ML VIAL IVP SCH (09:34)
[2022-11-05 10:09] LABS: INR 1.1 (0.80-1.20); PROTHROMBIN TIME 10.9 SECS (9.5-12.5)
[2022-11-05] MEDS: NORMAL SALINE 5 ML DISP.SYRIN IVF SCH ×2 (13:57→21:06)
[2022-11-05 21:55] LABS: BODY FLUID GLUCOSE 170 mg/dL; BODY FLUID TOTAL PROTEIN 5.4 g/dL
[2022-11-05 23:29] LABS: APPEARANCE,SPUN,BODY FLUID CLEAR (CLEAR); BF APPEARANCE UNSPUN HAZY (CLEAR); BODY FLUID COLOR AMBER (LT YELLOW); BODY FLUID SOURCE/ TYPE ASCITES; SOURCE/TYPE ,BODY FLUID ASCITES
[2022-11-05 23:30] LABS: BODY FLUID TOTAL VOLUME 1700 mL; EOSINOPHIL, BODY FLUID 0 %; LYMPHOCYTES, BODY FLUID 95 %; MONOCYTES,BODY FLUID 3 %; NEUTROPHIL, BODY FLUID 2 %; RBC, BODY FLUID 1989 /uL; WBC, BODY FLUID 2144 /uL
[2022-11-06 01:56] VITALS: BP_SYST 106
[2022-11-06] MEDS: ALBUTEROL SULFATE 0.083% 2.5 MG/3 ML VIAL.NEB INH SCH ×3 (03:00→11:00)
[2022-11-06] MEDS: IPRATROPIUM BROM 0.5 MG/2.5 ML VIAL.NEB (ATROVENT) INH SCH ×5 (03:00→23:22)
[2022-11-06 06:54] LABS: BASOPHILS % (AUTO) 0.3 % (0.0-2.0); EOSINOPHILS % (AUTO) 0.2 % (0.0-4.0); HEMATOCRIT 37.2 % (36-54); LYMPHOCYTES # (AUTO) 0.6 K/uL (1.0-5.5); LYMPHOCYTES % (AUTO) 8.3 % (20.5-51.5); MEAN CORPUSCULAR HEMOGLOBIN 26 pg (27-31); MEAN CORPUSCULAR HGB CONC 32 % (32-36); MEAN CORPUSCULAR VOLUME 80 fL (79.0-98.0); MONOCYTES # (AUTO) 0.5 K/uL (0.0-1.0); MONOCYTES % (AUTO) 6.7 % (1.7-9.3); NEUTROPHILS # (AUTO) 5.9 K/uL (1.8-7.7); NEUTROPHILS % (AUTO) 84.5 % (40.0-70.0); PLATELET COUNT (AUTO) 177 K/uL (130-430); RED BLOOD CELL COUNT(AUTO) 4.68 MIL/uL (4.2-6.2); RED CELL DISTRIBUTION WIDTH 16.8 % (9.0-15.0)
[2022-11-06 07:17] LABS: ALBUMIN 2.6 g/dL (3.4-4.8); C-REACTIVE PROTEIN QUANT 6.6 mg/dL (0-0.5); CALCIUM 8.6 mg/dL (8.4-11.0); CREATININE 1.12 mg/dL (0.55-1.30); TOTAL BILIRUBIN 0.3 mg/dL (0.0-1.0); TOTAL IRON BIND. CAPACITY 232 ug/dL (250-450)
[2022-11-06 07:28] LABS: ERYTHROCYTE SEDIMENTATION RATE 35 MM/HR (0-15)
[2022-11-06 09:00] VITALS: BP_SYST 117
[2022-11-06] MEDS: GABAPENTIN 300 MG CAPSULE PO SCH ×2 (09:00→21:00)
[2022-11-06] MEDS: TAMSULOSIN HCL 0.4 MG CAP PO SCH (09:00)
[2022-11-06] MEDS: FUROSEMIDE 20 MG/2 ML VIAL IVP SCH (09:00)
[2022-11-06] MEDS: lisinopriL 20 MG TABLET PO SCH (09:00)
[2022-11-06] MEDS: SPIRONOLACTONE 50 MG TABLET (ALDACTONE) PO SCH ×2 (09:00→15:43)
[2022-11-06 11:19] VITALS: BP_SYST 96
[2022-11-06] MEDS: NORMAL SALINE 5 ML DISP.SYRIN IVF SCH ×3 (13:03→22:07)
[2022-11-06 15:05] VITALS: BP_SYST 109
[2022-11-06 20:00] VITALS: BP_SYST 118
[2022-11-06] MEDS ORDERED: ALBUTEROL SULFATE 0.083% 2.5 MG/3 ML VIAL.NEB INH PRN (21:45)
[2022-11-06] MEDS: LORazepam 2 MG/ML VIAL IVP PRN (22:26)
[2022-11-07 00:39] VITALS: BP_SYST 96
[2022-11-07 01:00] VITALS: BP_SYST 107
[2022-11-07] MEDS ORDERED: IPRATROPIUM BROM 0.5 MG/2.5 ML VIAL.NEB (ATROVENT) INH PRN (01:15)
[2022-11-07] MEDS: LORazepam 2 MG/ML VIAL IVP PRN (02:19)
[2022-11-07] MEDS: NORMAL SALINE 5 ML DISP.SYRIN IVF SCH (05:39)
[2022-11-07 06:06] LABS: AFP, TUMOR MARKER 1.9 ng/mL (0.0-8.4); FERRITIN 423 ng/mL (30-400)
[2022-11-07 06:10] LABS: BASOPHILS % (AUTO) 0.4 % (0.0-2.0); EOSINOPHILS % (AUTO) 0.1 % (0.0-4.0); HEMATOCRIT 42.1 % (36-54); HEMOGLOBIN 13.7 g/dL (14.0-18.0); LYMPHOCYTES # (AUTO) 0.5 K/uL (1.0-5.5); LYMPHOCYTES % (AUTO) 5.6 % (20.5-51.5); MEAN CORPUSCULAR HEMOGLOBIN 26 pg (27-31); MEAN CORPUSCULAR HGB CONC 33 % (32-36); MEAN CORPUSCULAR VOLUME 79 fL (79.0-98.0); MONOCYTES # (AUTO) 0.7 K/uL (0.0-1.0); MONOCYTES % (AUTO) 8.8 % (1.7-9.3); NEUTROPHILS % (AUTO) 85.1 % (40.0-70.0); PLATELET COUNT (AUTO) 178 K/uL (130-430); RED BLOOD CELL COUNT(AUTO) 5.31 MIL/uL (4.2-6.2); RED CELL DISTRIBUTION WIDTH 16.7 % (9.0-15.0); WHITE BLOOD COUNT (AUTO) 8.2 K/uL (4.8-10.8)
[2022-11-07 06:34] LABS: ALBUMIN 2.9 g/dL (3.4-4.8); CALCIUM 8.6 mg/dL (8.4-11.0); CREATININE 1.3 mg/dL (0.55-1.30); TOTAL BILIRUBIN 0.5 mg/dL (0.0-1.0)
[2022-11-07 07:07] LABS: ALPHA-1-ANTITRYPSIN, S 236 mg/dL (101-187)
[2022-11-07 08:07] VITALS: BP_SYST 107
[2022-11-07] MEDS ORDERED: FUROSEMIDE 20 MG/2 ML VIAL IVP SCH (09:00)
[2022-11-07] MEDS: SPIRONOLACTONE 50 MG TABLET (ALDACTONE) PO SCH (09:05)
[2022-11-07] MEDS: TAMSULOSIN HCL 0.4 MG CAP PO SCH (09:06)
[2022-11-07] MEDS: lisinopriL 20 MG TABLET PO SCH (09:06)
[2022-11-07] MEDS: GABAPENTIN 300 MG CAPSULE PO SCH (09:06)
[2022-11-07] MEDS ORDERED: FURO-149 PO (10:47)
[2022-11-07] MEDS ORDERED: SPIR50TA PO (10:47)
[2022-11-07 11:09] VITALS: BP_SYST 114
[2022-11-07 11:28] VITALS: BP_SYST 114
[2022-11-07 17:06] LABS: ANTI NUCLEAR AB WITH REFLEX Negative (Negative)
[2022-11-08] MEDS ORDERED: FUROSEMIDE 40 MG/4 ML VIAL IVP SCH (09:00)
[2022-11-08 13:06] LABS: HEPATITIS A AB, IgM Negative (Negative); HEPATITIS B CORE AB, IgM Negative (Negative); HEPATITIS B SURFACE AG Negative (Negative)
[2022-11-09 10:06] LABS: ANTI-SMOOTH MUSCLE AB 6 Units (0-19)
== END 2022-11-07 12:25 | disposition home or self-care (01) ==
LOC: SED 20:54 → STU 11-05 01:29 → INTOOBSV 11-05 01:29 → SMU 11-05 02:05 → STU 11-07 03:38
PROVIDERS: ADMIT Preventive Medicine Preventive Medicine/Occupational Environmental Medicine; ATTEND Preventive Medicine Preventive Medicine/Occupational Environmental Medicine
DX: K74.60 Unspecified cirrhosis of liver (principal); R18.8 Other ascites; I11.0 Hypertensive heart disease with heart failure; I50.810 Right heart failure, unspecified; E87.1 Hypo-osmolality and hyponatremia; N17.9 Acute kidney failure, unspecified; R73.9 Hyperglycemia, unspecified; E88.09 Other disorders of plasma-protein metabolism, not elsewhere classified; R16.1 Splenomegaly, not elsewhere classified; J44.9 Chronic obstructive pulmonary disease, unspecified; N40.0 Benign prostatic hyperplasia without lower urinary tract symptoms; D64.9 Anemia, unspecified; K76.6 Portal hypertension; G47.33 Obstructive sleep apnea (adult) (pediatric); Z87.891 Personal history of nicotine dependence; Z98.84 Bariatric surgery status; Z79.899 Other long term (current) drug therapy
CPT/HCPCS: 80053 ×4; 85025 ×4; 85379; 84484; 36415 ×3; 93005; 76376 ×2; 74176; 94640 ×4; 99285; 96374; 96375 ×2; 81000; 82947; 83880; 83735; 84100; 84157; 84443; 85610; 85730; 87081; 87070; 87086; 89051 ×2; 89060; 71045; 71275; 49083; 94760 ×2; 82042; 82977; 83540; 83550; 83615; 85651; 86140; 76705; 80074; 82390; 86038; 83516 ×2; 82105; 82728; 82103; 96376; 76700; J2930; J7613 ×3; Q9967; J1940 ×2; G0378 ×3; J2060 ×2